=== PATIENT | male | born 2000 | race Caucasian/White ===

== ENCOUNTER 2024-02-29 03:53 | Emergency (ER) | payer BC ==
[~2024-02-29] VITALS: Ht 165.1 cm; Wt 109.1 kg
[2024-02-29 04:06] VITALS: TEMP 98.5
[2024-02-29 05:08] VITALS: BP 131/81; PULSE 90
== END 2024-02-29 05:08 | disposition home or self-care (01) ==
LOC: COL.ER 03:53
DX: S60.410A Abrasion of right index finger, initial encounter (principal); S60.412A Abrasion of right middle finger, initial encounter; S60.414A Abrasion of right ring finger, initial encounter; Z23 Encounter for immunization; W22.8XXA Striking against or struck by other objects, initial encounter; Y93.01 Activity, walking, marching and hiking